=== PATIENT | male | born 1985 | race American Indian/Alaskan Native ===

== ENCOUNTER 2017-08-07 11:27 | Emergency (ER) | payer SELFPAY ==
[2017-08-07] MEDS ORDERED: NORCO 5/325 PO ONE (12:04)
[2017-08-07] MEDS ORDERED: MOTRIN PO ONE (12:04)
[2017-08-07] MEDS ORDERED: FLEXERIL PO ONE (12:06)
--- NOTE | 2017-08-07 12:07 | Emergency Department Report ---
ED Back Pain/Injury HPI - General Chief Complaint: Back Pain/Injury Stated Complaint: BACK PAIN/SPASMS X 1 DAY Time Seen by Provider: 08/07/17 11:54 Source: patient Limitations: No Limitations - History of Present Illness Initial Comments: 31-year-old male with no significant past medical history presents complaining of lower back pain since last night. Symptoms started while in the bed he states he heard his back crack. He attempted to sleep and woke up and heard a popping sound and has had difficulty ambulating and moving since. Pain is constant, moderate to severe in intensity, throbbing, with palpation, movement, ambulation. Patient bought a back brace prior to arrival without improvement. Patient denies any trauma previous known fracture herniated disks and states he has had various injuries causing pain to his back in the past. He denies numbness, weakness, or urinary incontinence. - Related Data Previous Rx's Medication Instructions Recorded Last Taken Type Cyclobenzaprine [Flexeril] 10 mg PO TID PRN #30 tablet 08/07/17 Unknown Rx HYDROcodone/APAP 5-325 [[place] 1 each PO Q6HR PRN #14 tablet 08/07/17 Unknown Rx 5/325] Ibuprofen [Motrin] 800 mg PO Q8HR PRN #30 tablet 08/07/17 Unknown Rx Allergies Allergy/AdvReac Type Severity Reaction Status Date / Time No Known Allergies Allergy Unverified 08/07/17 11:46 ED Review of Systems ROS: Stated complaint: BACK PAIN/SPASMS X 1 DAY Other details as noted in HPI Comment: All other systems reviewed and negative ED Past Medical Hx - Past Medical History Previous Medical History?: No - Surgical History Past Surgical History?: No - Social History Smoking Status: Current Every Day Smoker - Medications Home Medications: Home Medications Medication Instructions Recorded Confirmed Last Taken Type Cyclobenzaprine [Flexeril] 10 mg PO TID PRN #30 tablet 08/07/17 Unknown Rx HYDROcodone/APAP 5-325 [[place] 1 each PO Q6HR PRN #14 tablet 08/07/17 Unknown Rx 5/325] Ibuprofen [Motrin] 800 mg PO Q8HR PRN #30 tablet 08/07/17 Unknown Rx ED Physical Exam - General Limitations: No Limitations - Other Other exam information: General: No limitations, patient is alert in no acute distress Head exam: Atraumatic, normocephalic Eyes exam: Normal appearance, pupils equal reactive to light, extraocular movements intact ENT: Moist mucous membrane, normal oropharynx Neck exam: Normal inspection, full range of motion, no meningismus nontender Respiratory exam: Clear to auscultation bilateral, no wheezes, rales, crackles Cardiovascular: Normal rate and rhythm, normal heart sounds Abdomen: Soft, nondistended, and nontender, with normal bowel sounds, no rebound, or guarding Extremity: Full range of motion normal inspection no deformity Back: Normal Inspection, full range of motion, no tenderness Neurologic: Alert, oriented x3, cranial nerves intact, no motor or sensory deficit Psychiatric: normal affect, normal mood Skin: Warm, dry, intact ED Course Vital Signs 08/07/17 08/07/17 11:40 12:00 Temperature 98.2 F 98.2 F Pulse Rate 47 L 92 H Respiratory 16 16 Rate Blood Pressure 101/64 Blood Pressure 133/67 [Right] O2 Sat by Pulse 100 100 Oximetry ED Medical Decision Making - Radiology Data Radiology results: report reviewed xr lumbar spine: naf (read by radiology) - Medical Decision Making Patient received Flexeril, no cold, and Motrin in the ED. He is not driving. No Neurologic deficits. X-ray negative. Will be discharged with muscular skeletal pain/spasm - Differential Diagnosis fracture, contusion, sprain, herniated disc Critical Care Time: No Critical care attestation.: If time is entered above; I have spent that time in minutes in the direct care of this critically ill patient, excluding procedure time. ED Disposition Clinical Impression: Low back strain Disposition: DC-01 TO HOME OR SELFCARE Is pt being admited?: No Does the pt Need Aspirin: No Condition: Stable Instructions: Low Back Strain (ED) Additional Instructions: Taken medications as prescribed. Follow up with the primary care doctor or clinic provided. Do not drive or operate heavy machinery taking [place] or Flexeril because these medications may cause drowsiness. Return if symptoms worsen as indicated by the discharge instructions Prescriptions: Cyclobenzaprine [Flexeril] 10 mg PO TID PRN #30 tablet PRN Reason: Muscle Spasm HYDROcodone/APAP 5-325 [[place] 5/325] 1 each PO Q6HR PRN #14 tablet PRN Reason: Pain Ibuprofen [Motrin] 800 mg PO Q8HR PRN #30 tablet PRN Reason: Pain Referrals: TOYA CRAWLEY MD [Staff Physician] - 3-5 Days [facility] [Provider Group] - 3-5 Days Time of Disposition: 13:29
--- NOTE | 2017-08-07 12:46 | XRay Report ---
AP AND LATERAL LUMBOSACRAL SPINE: History: Back pain. The vertebral bodies are well mineralized and normal in alignment and vertebral height with well preserved interspace distances. The visualized portions of the posterior elements are normal. IMPRESSION: Normal study.
[2017-08-07 12:53] VITALS: BP 133/67
== END 2017-08-07 14:18 | disposition home or self-care (01) ==
LOC: ED 11:27
DX: S39.012A Strain of muscle, fascia and tendon of lower back, initial encounter (principal); F17.200 Nicotine dependence, unspecified, uncomplicated; X58.XXXA Exposure to other specified factors, initial encounter; Y93.89 Activity, other specified; Y92.89 Other specified places as the place of occurrence of the external cause; Y99.8 Other external cause status
CPT/HCPCS: 72100; 99283